=== PATIENT | female | born 2000 | race Caucasian/White ===

== ENCOUNTER 2020-12-08 11:29 | Emergency (ER) | payer OTHER ==
[2020-12-08 12:20] LABS: Absolute Neutrophil Ct (ANC) 2.49 (1.4-6.9); BASOPHIL % 0.2 % (0.0-0.4); Basophil (Absolute #) 0.01 (0-0.4); Eosinophil % 2.8 % (0.00-5.0); Eosinophil (Absolute #) 0.14 (0-0.5); Hematocrit 39.3 % (35-47); Hemoglobin 12.9 gm/dl (12.0-16.0); Lymphocytes % 40.2 % (24.0-44.0); Mean Cell Volume 94.2 fl (78-100); Mean Corpuscular Hemoglobin 30.9 pg (26-32); Mean Corpuscular Hgb Concent. 32.8 g/dl (32-36); Mean Platelet Volume 9.8 fl (7.5-11.0); Monocyte (Absolute #) 0.33 (0.0-1.3); Monocytes % 6.6 % (0.0-12.0); Neutrophil % 50.2 % (36.0-66.0); Platelet Count 248 K/mm3 (150-450); Red Blood Count 4.17 M/mm3 (4.1-5.4); Red Cell Distribution Width 12.8 % (11.5-14.0)
[2020-12-08 12:25] LABS: Appearance CLEAR (CLEAR); Bilirubin NEGATIVE (NEGATIVE); Blood NEGATIVE Ery/ul (0-5); Glucose NEGATIVE (NEGATIVE); Ketones NEGATIVE (NEGATIVE); Leukocyte Esterase NEGATIVE (NEGATIVE); Mucus SLIGHT /HPF (NEGATIVE); Nitrite NEGATIVE (NEGATIVE); Protein,Urine Dip NEGATIVE (Negative); Specific Gravity 1.018 (1.005-1.025); Urobilinogen NEGATIVE mg/dL (0-1)
[2020-12-08 12:35] LABS: ALBUMIN 4.4 g/dL (3.5-5.0); ALKALINE PHOSPHATASE 35 U/L (38-126); ANION GAP 9.3 MEQ/L (5-15); BLOOD UREA NITROGEN 9 mg/dL (7-17); CHLORIDE 108 mmol/L (98-107); Calcium 9.6 mg/dL (8.4-10.2); Carbon Dioxide 25 mmol/L (22-30); Creatinine 1 0.58 mg/dL (0.52-1.04); EST GLOMERULAR FILTRATION RATE > 60.0 ML/MIN; Glucose 101 mg/dL (74-106); Potassium 3.8 mmol/L (3.5-5.1); SGOT/AST 20 U/L (14-36); SGPT/ALT 12 U/L (0-35); SODIUM 138 mmol/L (137-145)
[2020-12-08 13:10] VITALS: O2SAT 98
[2020-12-08 14:07] VITALS: PULSE 72
--- NOTE | 2020-12-08 14:37 | ERPHSYRPT ---
- History of Present Illness Time Seen by Provider: 12/08/20 11:45 Patient Subjective Stated Complaint: Pt states that her back hurts between her shoulder blades but more on her left than the right, reports that it feels like a "balloon" in the lower left lung, pt states that she has been doing a lot of twitching all night and is feeling throbbing on her left side, pt states that her left neck has been hurting as well Triage Nursing Assessment: Pt was brought to the ER by her boyfriend, lyle feliz, rates overall pain at this time as 5/10 but it does go up to an 8-9, pulses normal, skin n/w/d, denies any injury, nauseous, denies vomiting, last bm today, last oral intake 1999 yesterday Physician History: 1-year-old female who spent last night with her grandmother developed some left posterior chest pain left side tingling pain in the left axilla and she had a breathing problem. She was out of air. She denies any fever chills or sweats she has had some cough she is confused at times playing cards. Timing/Duration: yesterday Severity: moderate Associated Symptoms: shortness of breath, cough, chest pain Allergies/Adverse Reactions: Penicillins Allergy (Verified 12/08/20 11:42) Travel Risk - International Travel Have you traveled outside of the country in past 3 weeks: No - Coronavirus Screening Are you exhibiting any of the following symptoms?: No Close contact with a COVID-19 positive Pt in past 14-21 Days: Yes - Review of Systems Constitutional: No Fever, No Chills Eyes: No Symptoms Ears, Nose, & Throat: No Symptoms Respiratory: Cough Cardiac: Chest Pain, No Edema, No Syncope Abdominal/Gastrointestinal: No Abdominal Pain, No Nausea, No Vomiting, No Diarrhea Genitourinary Symptoms: No Dysuria Musculoskeletal: Back Pain, No Neck Pain Skin: No Rash Neurological: No Dizziness, No Focal Weakness, No Sensory Changes Psychological: No Symptoms Endocrine: No Symptoms All Other Systems: Reviewed and Negative - Past Medical History Pertinent Past Medical History: Yes Respiratory History: Asthma GI Medical History: Irritable Bowel - Past Surgical History Past Surgical History: Yes Other Surgical History: cyst removal on left hand - Social History Smoking Status: Former smoker Exposure to second hand smoke: No Drug Use: marijuana Patient Lives Alone: No - Female History Hx Last Menstrual Period: [id number] Hx Now: No - Nursing Vital Signs Nursing Vital Signs: Initial Vital Signs Temperature 98.1 F 12/08/20 11:31 Pulse Rate 79 12/08/20 11:31 Blood Pressure 151/90 12/08/20 11:31 O2 Sat by Pulse Oximetry 98 12/08/20 11:31 Pain Scale Pain Intensity [Left Back] 5 Pain Intensity 4 - Physical Exam General Appearance: mild distress, alert Eye Exam: PERRL/EOMI, eyes nml inspection Ears, Nose, Throat Exam: normal ENT inspection, TMs normal, pharynx normal, moist mucous membranes Neck Exam: normal inspection, non-tender, supple, full range of motion Respiratory Exam: normal breath sounds, lungs clear, No respiratory distress Cardiovascular Exam: regular rate/rhythm, normal heart sounds, normal peripheral pulses Gastrointestinal/Abdomen Exam: soft, normal bowel sounds, No tenderness, No mass Back Exam: normal inspection, normal range of motion, No CVA tenderness, No vertebral tenderness Extremity Exam: normal inspection, normal range of motion, pelvis stable Neurologic Exam: alert, oriented x 3, cooperative, normal mood/affect, nml cerebellar function, nml station & gait, sensation nml, No motor deficits Skin Exam: normal color, warm, dry, No rash Lymphatic Exam: No adenopathy SpO2: 98 - Course Nursing assessment & vital signs reviewed: Yes EKG Interpreted by Me: RATE (67), Sinus Rhythm, Right [place] Deviation, NORMAL INTERVALS, NORMAL QRS, NORMAL ST-T - Radiology Exams Chest X-ray Interpretation: Interpreted by me, Negative Ordered Tests: Active Orders 24 hr Category Date Time Status EKG-ER Only STAT Care 12/08/20 11:59 Active CHEST 1 VIEW (PORTABLE) Stat Exams 12/08/20 11:59 Taken HEAD WITHOUT CONTRAST [CT] Stat Exams 12/08/20 11:58 Taken CBC W DIFF Stat Lab 12/08/20 12:15 Completed CMP Stat Lab 12/08/20 12:15 Completed D-DIMER QUANTITATIVE Stat Lab 12/08/20 12:15 Completed HCG,QUALITATIVE URINE Stat Lab 12/08/20 12:08 Completed TROPONIN Q3H Lab 12/08/20 12:15 Completed TROPONIN Q3H Lab 12/08/20 15:00 Ordered TROPONIN Q3H Lab 12/08/20 18:00 Ordered TROPONIN Q3H Lab 12/08/20 21:00 Ordered TROPONIN Q3H Lab 12/09/20 00:00 Ordered UA W/RFX UR CULTURE Stat Lab 12/08/20 12:08 Completed Lab/Rad Data: Laboratory Result Diagrams 12/08/20 12:15 12/08/20 12:15 Laboratory Results 12/08/20 12/08/20 12/08/20 Range/Units 12:15 12:15 12:15 WBC (4.0-10.5) K/mm3 RBC (4.1-5.4) M/mm3 Hgb (12.0-16.0) gm/dl Hct (35-47) % MCV (78-100) fl MCH (26-32) pg MCHC (32-36) g/dl RDW (11.5-14.0) % Plt Count (150-450) K/mm3 MPV (7.5-11.0) fl Gran % (36.0-66.0) % Eos # (Auto) (0-0.5) Absolute Lymphs (auto) (1.0-4.6) Absolute Monos (auto) (0.0-1.3) Lymphocytes % (24.0-44.0) % Monocytes % (0.0-12.0) % Eosinophils % (0.00-5.0) % Basophils % (0.0-0.4) % Absolute Granulocytes (1.4-6.9) Basophils # (0-0.4) D-Dimer < 215 L (215-500) ng/mL Sodium 138 (137-145) mmol/L Potassium 3.8 (3.5-5.1) mmol/L Chloride 108 H (98-107) mmol/L Carbon Dioxide 25 (22-30) mmol/L Anion Gap 9.3 (5-15) MEQ/L BUN 9 (7-17) mg/dL Creatinine 0.58 (0.52-1.04) mg/dL Estimated GFR > 60.0 ML/MIN Glucose 101 (74-106) mg/dL Calcium 9.6 (8.4-10.2) mg/dL Total Bilirubin 0.60 (0.2-1.3) mg/dL AST 20 (14-36) U/L ALT 12 (0-35) U/L Alkaline Phosphatase 35 L (38-126) U/L Troponin I < 0.012 (0.000-0.034) ng/mL Serum Total Protein 7.0 (6.3-8.2) g/dL Albumin 4.4 (3.5-5.0) g/dL Urine Color (YELLOW) Urine Appearance (CLEAR) Urine pH (5-6) Ur Specific [place] (1.005-1.025) Urine Protein (Negative) Urine Ketones (NEGATIVE) Urine Blood (0-5) Galo/ul Urine Nitrite (NEGATIVE) Urine Bilirubin (NEGATIVE) Urine Urobilinogen (0-1) mg/dL Ur Leukocyte Esterase (NEGATIVE) Urine WBC (Auto) (0-5) /HPF Urine RBC (Auto) (0-2) /HPF U Epithel Cells (Auto) (FEW) /HPF Urine Bacteria (Auto) (NEGATIVE) /HPF Urine Mucus (Auto) (NEGATIVE) /HPF Urine Culture Reflexed (NO) Urine Glucose (NEGATIVE) mg/dL Urine HCG, Qual (Negative) 12/08/20 12/08/20 12/08/20 Range/Units 12:15 12:08 12:08 WBC 5.0 (4.0-10.5) K/mm3 RBC 4.17 (4.1-5.4) M/mm3 Hgb 12.9 (12.0-16.0) gm/dl Hct 39.3 (35-47) % MCV 94.2 (78-100) fl MCH 30.9 (26-32) pg MCHC 32.8 (32-36) g/dl RDW 12.8 (11.5-14.0) % Plt Count 248 (150-450) K/mm3 MPV 9.8 (7.5-11.0) fl Gran % 50.2 (36.0-66.0) % Eos # (Auto) 0.14 (0-0.5) Absolute Lymphs (auto) 2.00 (1.0-4.6) Absolute Monos (auto) 0.33 (0.0-1.3) Lymphocytes % 40.2 (24.0-44.0) % Monocytes % 6.6 (0.0-12.0) % Eosinophils % 2.8 (0.00-5.0) % Basophils % 0.2 (0.0-0.4) % Absolute Granulocytes 2.49 (1.4-6.9) Basophils # 0.01 (0-0.4) D-Dimer (215-500) ng/mL Sodium (137-145) mmol/L Potassium (3.5-5.1) mmol/L Chloride (98-107) mmol/L Carbon Dioxide (22-30) mmol/L Anion Gap (5-15) MEQ/L BUN (7-17) mg/dL Creatinine (0.52-1.04) mg/dL Estimated GFR ML/MIN Glucose (74-106) mg/dL Calcium (8.4-10.2) mg/dL Total Bilirubin (0.2-1.3) mg/dL AST (14-36) U/L ALT (0-35) U/L Alkaline Phosphatase (38-126) U/L Troponin I (0.000-0.034) ng/mL Serum Total Protein (6.3-8.2) g/dL Albumin (3.5-5.0) g/dL Urine Color YELLOW (YELLOW) Urine Appearance CLEAR (CLEAR) Urine pH 7.0 (5-6) Ur Specific [place] 1.018 (1.005-1.025) Urine Protein NEGATIVE (Negative) Urine Ketones NEGATIVE (NEGATIVE) Urine Blood NEGATIVE (0-5) Galo/ul Urine Nitrite NEGATIVE (NEGATIVE) Urine Bilirubin NEGATIVE (NEGATIVE) Urine Urobilinogen NEGATIVE (0-1) mg/dL Ur Leukocyte Esterase NEGATIVE (NEGATIVE) Urine WBC (Auto) NONE (0-5) /HPF Urine RBC (Auto) NONE (0-2) /HPF U Epithel Cells (Auto) NONE (FEW) /HPF Urine Bacteria (Auto) NONE (NEGATIVE) /HPF Urine Mucus (Auto) SLIGHT (NEGATIVE) /HPF Urine Culture Reflexed NO (NO) Urine Glucose NEGATIVE (NEGATIVE) mg/dL Urine HCG, Qual NEGATIVE (Negative) - Departure Departure Disposition: Home Clinical Impression: Back pain, thoracic Condition: Stable Critical Care Time: No Referrals: JEAN QUINONEZ PA [Primary Care Provider] - Instructions: Upper Back Pain (DC) Prescriptions: Oxycodone HCl/Acetaminophen [Percocet 5-325 mg Tablet] 1 each PO Q6H 3 Days #10 tablet MDD 4
[2020-12-08 14:52] VITALS: BP 120/69
--- NOTE | 2020-12-08 18:52 | XRAY ---
Indication: Short of breath. Comparison: None Portable chest demonstrates normal heart, lungs, and bony thorax.
--- NOTE | 2020-12-08 18:52 | XRAY ---
Indication: Confusion. Multiple contiguous axial images obtained through the head without contrast. Comparison: None. Normal appearing brain parenchyma, ventricles, and bony calvarium. 2 cm right maxillary sinus polyp/retention cyst. Remaining visualized paranasal sinuses and mastoid air cells are clear. Impression: Normal CT head without contrast exam. Incidental right maxillary sinus polyp/retention cyst. Comment: Preliminary interpretation was made by [facility]. No critical discrepancy.
== END 2020-12-08 14:56 | disposition home or self-care (01) ==
LOC: ED 11:29
DX: M54.6 Pain in thoracic spine (principal); R07.89 Other chest pain; R05 Cough
CPT/HCPCS: 36415; 70450; 71045; 80053; 81001; 84484; 84703; 85025; 85379; 93005; 99284

== ENCOUNTER 2021-01-06 08:50 | Emergency (ER) | payer OTHER ==
--- NOTE | 2021-01-06 08:56 | ERPHSYRPT ---
- History of Present Illness Time Seen by Provider: 01/06/21 08:56 Historian: patient Exam Limitations: no limitations Physician History: This is a 20-year-old white female who presents with epigastric abdominal discomfort and vomiting episodes for over a month. She states she has not been able to hold anything down for over a month. Patient has an appointment with h primary care physician tomorrow but felt that she could not wait until then to be evaluated. Patient denies fever. She denies chest pain. She denies shortness of breath. Patient denies diarrhea. Timing/Duration: other (Over a month) Quality: pressure Abdominal Pain Onset Location: epigastric Severity of Pain-Max: mild Severity of Pain-Current: mild Associated Symptoms: loss of appetite, nausea, vomiting, No chest pain, No diarrhea, No fever/chills, No shortness of breath Previous symptoms: same symptoms as today Allergies/Adverse Reactions: Penicillins Allergy (Verified 01/06/21 08:55) Home Medications: Buspirone HCl 5 mg [Buspar 5 mg] 1 ea DAILY 01/06/21 [History] Prazosin HCl 1 ea DAILY 01/06/21 [History] Vilazodone HCl [Viibryd] 1 ea DAILY 01/06/21 [History] Travel Risk - International Travel Have you traveled outside of the country in past 3 weeks: No - Coronavirus Screening Are you exhibiting any of the following symptoms?: No Close contact with a COVID-19 positive Pt in past 14-21 Days: No - Review of Systems Constitutional: No Symptoms Eyes: No Symptoms Ears, Nose, & Throat: No Symptoms Respiratory: No Symptoms Cardiac: No Symptoms Abdominal/Gastrointestinal: Abdominal Pain, Nausea, Vomiting, No Diarrhea Genitourinary Symptoms: No Symptoms Musculoskeletal: No Symptoms Skin: No Symptoms Neurological: No Symptoms Psychological: No Symptoms Endocrine: No Symptoms Hematologic/Lymphatic: No Symptoms Immunological/Allergic: No Symptoms All Other Systems: Reviewed and Negative - Past Medical History Pertinent Past Medical History: Yes Respiratory History: Asthma GI Medical History: Irritable Bowel - Past Surgical History Past Surgical History: Yes Other Surgical History: cyst removal on left hand - Social History Smoking Status: Former smoker Exposure to second hand smoke: No Drug Use: marijuana Patient Lives Alone: No - Nursing Vital Signs Nursing Vital Signs: Initial Vital Signs Pulse Rate 84 01/06/21 09:03 Respiratory Rate 16 01/06/21 09:03 Blood Pressure 143/91 01/06/21 09:03 O2 Sat by Pulse Oximetry 98 01/06/21 09:03 Pain Scale Pain Intensity 6 - Physical Exam General Appearance: no apparent distress, alert, anxiety Eye Exam: PERRL/EOMI, eyes nml inspection Ears, Nose, Throat Exam: normal ENT inspection, moist mucous membranes Neck Exam: normal inspection, non-tender, supple, full range of motion Respiratory Exam: normal breath sounds, lungs clear, airway intact, No chest tenderness, No respiratory distress Cardiovascular Exam: regular rate/rhythm, normal heart sounds, normal peripheral pulses Gastrointestinal/Abdomen Exam: soft, normal bowel sounds, tenderness (Mild epigastric region), No guarding, No rebound Pelvic Exam: not done Rectal Exam: not done Back Exam: normal inspection, normal range of motion, No CVA tenderness, No vertebral tenderness Extremity Exam: normal inspection, normal range of motion, pelvis stable Neurologic Exam: alert, oriented x 3, cooperative, latex spooler II-XII nml as tested, normal mood/affect, nml cerebellar function, nml station & gait, sensation nml Skin Exam: normal color, warm, dry Lymphatic Exam: No adenopathy SpO2 Interpretation: normal O2 Delivery: Room Air - Course Nursing assessment & vital signs reviewed: Yes Ordered Tests: Active Orders 24 hr Category Date Time Status IV Insertion STAT Care 01/06/21 09:15 Active ABDOMEN AND PELVIS W/0 CONTRAS [CT] Stat Exams 01/06/21 09:16 Completed AMYLASE Stat Lab 01/06/21 09:45 Completed CBC W DIFF Stat Lab 01/06/21 09:45 Completed CMP Stat Lab 01/06/21 09:45 Completed HCG,QUALITATIVE URINE Stat Lab 01/06/21 09:16 Completed LIPASE Stat Lab 01/06/21 09:45 Completed Lactic Acid Stat Lab 01/06/21 09:15 Completed UA W/RFX UR CULTURE Stat Lab 01/06/21 09:18 Completed Urine Triage Profile Stat Lab 01/06/21 09:18 Completed Medication Summary Discontinued Medications Generic Name Dose Route Start Last Admin Trade Name Freq PRN Reason Stop Dose Admin Sodium Chloride 1,000 mls @ 999 mls/hr 01/06/21 09:15 01/06/21 09:24 Sodium Chloride 0.9% 1000 Ml IV 01/06/21 10:15 999 mls/hr .Q1H1M STA Administration Sodium Chloride Confirm 01/06/21 09:21 Sodium Chloride 0.9% 1000 Ml Administered 01/06/21 09:22 Dose 1,000 mls @ ud .ROUTE .STK-MED ONE Pantoprazole Sodium 40 mg 01/06/21 09:15 01/06/21 09:24 Protonix 40 Mg Iv IV 01/06/21 09:16 40 mg STAT ONE Administration Pantoprazole Sodium Confirm 01/06/21 09:21 Protonix 40 Mg Iv Administered 01/06/21 09:22 Dose 40 mg IV .STK-MED ONE Lab/Rad Data: Laboratory Result Diagrams 01/06/21 09:45 01/06/21 09:45 Laboratory Results 01/06/21 01/06/21 01/06/21 Range/Units 09:45 09:45 09:18 WBC 8.1 (4.0-10.5) K/mm3 RBC 4.58 (4.1-5.4) M/mm3 Hgb 14.1 (12.0-16.0) gm/dl Hct 43.5 (35-47) % MCV 95.0 (78-100) fl MCH 30.8 (26-32) pg MCHC 32.4 (32-36) g/dl RDW 12.8 (11.5-14.0) % Plt Count 284 (150-450) K/mm3 MPV 9.8 (7.5-11.0) fl Gran % 61.5 (36.0-66.0) % Eos # (Auto) 0.13 (0-0.5) Absolute Lymphs (auto) 2.47 (1.0-4.6) Absolute Monos (auto) 0.50 (0.0-1.3) Lymphocytes % 30.5 (24.0-44.0) % Monocytes % 6.2 (0.0-12.0) % Eosinophils % 1.6 (0.00-5.0) % Basophils % 0.2 (0.0-0.4) % Absolute Granulocytes 4.97 (1.4-6.9) Basophils # 0.02 (0-0.4) Sodium 138 (137-145) mmol/L Potassium 4.2 (3.5-5.1) mmol/L Chloride 103 (98-107) mmol/L Carbon Dioxide 24 (22-30) mmol/L Anion Gap 15.8 H (5-15) MEQ/L BUN 13 (7-17) mg/dL Creatinine 0.62 (0.52-1.04) mg/dL Estimated GFR > 60.0 ML/MIN Glucose 92 (74-106) mg/dL Lactic Acid (0.4-2.0) Calcium 10.5 H (8.4-10.2) mg/dL Total Bilirubin 0.70 (0.2-1.3) mg/dL AST 21 (14-36) U/L ALT 16 (0-35) U/L Alkaline Phosphatase 36 L (38-126) U/L Serum Total Protein 8.0 (6.3-8.2) g/dL Albumin 5.2 H (3.5-5.0) g/dL Amylase 51 (30-110) U/L Lipase 59 (23-300) U/L Urine Color (YELLOW) Urine Appearance (CLEAR) Urine pH (5-6) Ur Specific [place] (1.005-1.025) Urine Protein (Negative) Urine Ketones (NEGATIVE) Urine Blood (0-5) Galo/ul Urine Nitrite (NEGATIVE) Urine Bilirubin (NEGATIVE) Urine Urobilinogen (0-1) mg/dL Ur Leukocyte Esterase (NEGATIVE) Urine WBC (Auto) (0-5) /HPF Urine RBC (Auto) (0-2) /HPF U Epithel Cells (Auto) (FEW) /HPF Urine Bacteria (Auto) (NEGATIVE) /HPF Urine Culture Reflexed (NO) Urine Glucose (NEGATIVE) mg/dL Urine HCG, Qual (Negative) Urine Opiates Level NEGATIVE (NEGATIVE) Ur Methadone NEGATIVE (NEGATIVE) Urine Barbiturates NEGATIVE (NEGATIVE) Ur Phencyclidine (PCP) NEGATIVE (NEGATIVE) Urine Amphetamine NEGATIVE (NEGATIVE) U Benzodiazepine Level NEGATIVE (NEGATIVE) Urine Cocaine NEGATIVE (NEGATIVE) Urine Marijuana (THC) POSITIVE (NEGATIVE) 01/06/21 01/06/21 01/06/21 Range/Units 09:18 09:16 09:15 WBC (4.0-10.5) K/mm3 RBC (4.1-5.4) M/mm3 Hgb (12.0-16.0) gm/dl Hct (35-47) % MCV (78-100) fl MCH (26-32) pg MCHC (32-36) g/dl RDW (11.5-14.0) % Plt Count (150-450) K/mm3 MPV (7.5-11.0) fl Gran % (36.0-66.0) % Eos # (Auto) (0-0.5) Absolute Lymphs (auto) (1.0-4.6) Absolute Monos (auto) (0.0-1.3) Lymphocytes % (24.0-44.0) % Monocytes % (0.0-12.0) % Eosinophils % (0.00-5.0) % Basophils % (0.0-0.4) % Absolute Granulocytes (1.4-6.9) Basophils # (0-0.4) Sodium (137-145) mmol/L Potassium (3.5-5.1) mmol/L Chloride (98-107) mmol/L Carbon Dioxide (22-30) mmol/L Anion Gap (5-15) MEQ/L BUN (7-17) mg/dL Creatinine (0.52-1.04) mg/dL Estimated GFR ML/MIN Glucose (74-106) mg/dL Lactic Acid 1.0 (0.4-2.0) Calcium (8.4-10.2) mg/dL Total Bilirubin (0.2-1.3) mg/dL AST (14-36) U/L ALT (0-35) U/L Alkaline Phosphatase (38-126) U/L Serum Total Protein (6.3-8.2) g/dL Albumin (3.5-5.0) g/dL Amylase (30-110) U/L Lipase (23-300) U/L Urine Color COLORLESS (YELLOW) Urine Appearance CLEAR (CLEAR) Urine pH 7.0 (5-6) Ur Specific [place] 1.001 (1.005-1.025) Urine Protein NEGATIVE (Negative) Urine Ketones TRACE (NEGATIVE) Urine Blood SMALL (0-5) Galo/ul Urine Nitrite NEGATIVE (NEGATIVE) Urine Bilirubin NEGATIVE (NEGATIVE) Urine Urobilinogen NEGATIVE (0-1) mg/dL Ur Leukocyte Esterase NEGATIVE (NEGATIVE) Urine WBC (Auto) NONE (0-5) /HPF Urine RBC (Auto) NONE (0-2) /HPF U Epithel Cells (Auto) NONE (FEW) /HPF Urine Bacteria (Auto) NONE (NEGATIVE) /HPF Urine Culture Reflexed NO (NO) Urine Glucose NEGATIVE (NEGATIVE) mg/dL Urine HCG, Qual NEGATIVE (Negative) Urine Opiates Level (NEGATIVE) Ur Methadone (NEGATIVE) Urine Barbiturates (NEGATIVE) Ur Phencyclidine (PCP) (NEGATIVE) Urine Amphetamine (NEGATIVE) U Benzodiazepine Level (NEGATIVE) Urine Cocaine (NEGATIVE) Urine Marijuana (THC) (NEGATIVE) - Progress Progress: unchanged, re-examined Progress Note: 01/06/21 10:17 CAT scan of the abdomen and pelvis without contrast reveals no acute intra abdominal or intrapelvic process. Medical decision making: This patient does not have any acute, emergent abdominal issues. Despite vomiting for "over a month" and "unable to hold anything down" her laboratory work-up is normal. Her radiographic studies are normal. I believe this patient has some definite psychiatric issues that need to be dealt with. She has an appointment to see Saloni Ortega nurse practitioner tomorrow. We have informed Saloni Ortega of our concerns. She will evaluate this patient tomorrow and provide further management. Counseled pt/family regarding: lab results, diagnosis, need for follow-up, rad results - Departure Departure Disposition: Home Clinical Impression: Vomiting, Anxiety Condition: Stable Critical Care Time: No Referrals: JEAN QUINONEZ PA [Primary Care Provider] - Additional Instructions: Drink plenty of fluids. Take your medication as prescribed. Follow-up with Saloni Ortega nurse practitioner tomorrow for further management
[2021-01-06] MEDS ORDERED: Sodium Chloride 0.9% 1000 ML 1,000 ML ONE (09:21)
[2021-01-06] MEDS ORDERED: PROTONIX 40 MG IV IV ONE (09:21)
[2021-01-06] MEDS: Sodium Chloride 0.9% 1000 ML 1,000 ML IV STA (09:24)
[2021-01-06] MEDS: PROTONIX 40 MG IV IV ONE (09:24)
[2021-01-06 09:28] LABS: Appearance CLEAR (CLEAR); Bilirubin NEGATIVE (NEGATIVE); Blood SMALL Ery/ul (0-5); Glucose NEGATIVE (NEGATIVE); Ketones TRACE (NEGATIVE); Leukocyte Esterase NEGATIVE (NEGATIVE); Nitrite NEGATIVE (NEGATIVE); Protein,Urine Dip NEGATIVE (Negative); Specific Gravity 1.001 (1.005-1.025); Urobilinogen NEGATIVE mg/dL (0-1)
[2021-01-06 09:43] LABS: Amphetamine,Urine NEGATIVE (NEGATIVE); Barbiturate,Urine NEGATIVE (NEGATIVE); Benzodiazepine,Urine NEGATIVE (NEGATIVE); Cocaine,Urine NEGATIVE (NEGATIVE); Methadone,Urine NEGATIVE (NEGATIVE); Opiate,Urine NEGATIVE (NEGATIVE); PCP,Urine NEGATIVE (NEGATIVE); THC,Urine POSITIVE (NEGATIVE)
[2021-01-06 09:49] LABS: Absolute Neutrophil Ct (ANC) 4.97 (1.4-6.9); BASOPHIL % 0.2 % (0.0-0.4); Basophil (Absolute #) 0.02 (0-0.4); Eosinophil % 1.6 % (0.00-5.0); Eosinophil (Absolute #) 0.13 (0-0.5); Hematocrit 43.5 % (35-47); Hemoglobin 14.1 gm/dl (12.0-16.0); Lymphocyte (Absolute #) 2.47 (1.0-4.6); Lymphocytes % 30.5 % (24.0-44.0); Mean Corpuscular Hemoglobin 30.8 pg (26-32); Mean Corpuscular Hgb Concent. 32.4 g/dl (32-36); Mean Platelet Volume 9.8 fl (7.5-11.0); Monocytes % 6.2 % (0.0-12.0); Neutrophil % 61.5 % (36.0-66.0); Platelet Count 284 K/mm3 (150-450); Red Blood Count 4.58 M/mm3 (4.1-5.4); Red Cell Distribution Width 12.8 % (11.5-14.0); White Blood Count 8.1 K/mm3 (4.0-10.5)
[2021-01-06 10:01] LABS: ALBUMIN 5.2 g/dL (3.5-5.0); ALKALINE PHOSPHATASE 36 U/L (38-126); AMYLASE 51 U/L (30-110); ANION GAP 15.8 MEQ/L (5-15); BLOOD UREA NITROGEN 13 mg/dL (7-17); CHLORIDE 103 mmol/L (98-107); Calcium 10.5 mg/dL (8.4-10.2); Carbon Dioxide 24 mmol/L (22-30); Creatinine 1 0.62 mg/dL (0.52-1.04); EST GLOMERULAR FILTRATION RATE > 60.0 ML/MIN; Glucose 92 mg/dL (74-106); LIPASE 59 U/L (23-300); Potassium 4.2 mmol/L (3.5-5.1); SGOT/AST 21 U/L (14-36); SGPT/ALT 16 U/L (0-35); SODIUM 138 mmol/L (137-145)
--- NOTE | 2021-01-06 10:13 | XRAY ---
Indication: Abdomen pain and bloating. Multiple contiguous axial images obtained through the abdomen and pelvis without contrast as ordered. Comparison: None Lung bases dense is minimal fibrosis/scarring. No infiltrate or effusion. Heart is not enlarged. Noncontrasted stomach and bowel loops appear nonobstructed. Normal appendix. Radiopacity in the ascending colon presumed ingested medication/bismuth/barium. Tampon in situ. No free fluid/air. Remaining liver, gallbladder, pancreas, spleen, adrenal glands, kidneys, ureters, bladder, uterus, and aorta appear unremarkable for noncontrast exam. Osseous structures intact. Impression: 1. Incidental medication/bismuth/barium in the right hemicolon and tampon in situ. 2. Remaining CT abdomen/pelvis without contrast exam is negative.
[2021-01-06 10:44] VITALS: BP 143/86; PULSE 69; O2SAT 95
== END 2021-01-06 10:42 | disposition home or self-care (01) ==
LOC: ED 08:50
DX: R10.13 Epigastric pain (principal); R11.2 Nausea with vomiting, unspecified; F41.9 Anxiety disorder, unspecified
CPT/HCPCS: 36000; 36415; 74176; 80053; 80307; 81001; 82150; 83605; 83690; 84703; 85025; 96360; 96374; 99284

== ENCOUNTER 2021-01-27 06:10 | Day surgery (SDC) | payer OTHER ==
[2021-01-27] MEDS ORDERED: Lactated Ringers 1,000 ML IV SCH (06:30)
[2021-01-27] MEDS ORDERED: Xylocaine-Mpf 2% 5 Ml Vial ONE (07:24)
[2021-01-27] MEDS ORDERED: DIPRIVAN 200 MG/20 ML IV ONE ×2 (07:24→07:25)
[2021-01-27] MEDS ORDERED: Versed 2 MG/2 ML Injection ONE (07:25)
[2021-01-27 08:40] VITALS: O2SAT 100
[2021-01-27 08:41] VITALS: BP 122/72; PULSE 73
--- NOTE | 2021-01-27 13:57 | OP ---
SURGERY DATE/TIME: 01/27/2021 0725 PREOPERATIVE DIAGNOSIS: Irritable bowel, diarrhea and mucous in stool. POSTOPERATIVE DIAGNOSIS: Normal colon. PROCEDURE: Colonoscopy with cold forceps biopsies random throughout the colon. SURGEON: Dr. Alcazar. ANESTHESIA: MAC. Medications given by anesthesia department. HISTORY: The patient is a 20 year old white female presenting for colonoscopic evaluation. She has a long history of abdominal pain and diarrhea. The patient is felt the need to have endoscopic evaluation to rule out the presence of possible inflammatory bowel disease. The patient was described the risks of the procedure including the risk of perforation, phlebitis, untoward reaction to medication, bleeding and missed lesions. The patient verbalized her understanding and desired to have the procedure performed. DESCRIPTION OF PROCEDURE: The patient was given the medications by the anesthesia department. She had continuous pulse oximetry, ECG monitoring, intermittent blood pressure monitoring and tidal CO2 monitoring during the examination. She was placed in the left lateral decubitus position. A digital rectal examination was performed and revealed normal anal sphincter tone and no masses. The flexible Olympus pediatric colonoscope was used to intubate the rectum. A view of the colon was developed sequentially to the cecum including approximately 20 cm in the terminal ileum. Upon insertion and withdrawal, no mucosal lesions were encountered. Biopsies were obtained from terminal ileum and random sections throughout the colon to rule out the presence of underlying inflammatory bowel disease. The scope was removed from the patient who tolerated the procedure well and was sent back to OP recovery in good condition. The prep was noted to be fair. There was semisolid stool noted throughout portions of particularly the transverse colon.
== END 2021-01-27 08:42 | disposition home or self-care (01) ==
LOC: SDC 06:10
PROVIDERS: ATTEND Family Medicine
DX: K58.8 Other irritable bowel syndrome (principal); R19.7 Diarrhea, unspecified; R19.5 Other fecal abnormalities
CPT/HCPCS: 84703; 88305; J2250; J2704